=== PATIENT | male | born 1985 | race Caucasian/White ===

== ENCOUNTER 2021-04-27 17:57 | Inpatient (IN) | payer SELFPAY ==
[~2021-04-27] VITALS: Ht 182.9 cm; Wt 100.7 kg
[2021-04-27 19:22] LABS: HEMOGLOBIN 15.2 gm/dl (14.0-17.5); RED BLOOD COUNT 4.8 M/UL (4.20-5.50); WHITE BLOOD COUNT 15.7 K/UL (4.5-11.0)
[2021-04-27 19:59] LABS: BUN/CREATININE RATIO 15 (0-10)
[2021-04-28 06:41] LABS: HEMOGLOBIN 13.2 gm/dl (14.0-17.5); RED BLOOD COUNT 4.18 M/UL (4.20-5.50); WHITE BLOOD COUNT 10.5 K/UL (4.5-11.0)
[2021-04-28 12:43] LABS: BUN/CREATININE RATIO 10 (0-10)
[2021-04-28 13:02] LABS: HEMOGLOBIN 10.5 gm/dl (14.0-17.5); RED BLOOD COUNT 3.36 M/UL (4.20-5.50); WHITE BLOOD COUNT 19.5 K/UL (4.5-11.0)
[2021-04-29 06:36] LABS: HEMOGLOBIN 10.8 gm/dl (14.0-17.5); RED BLOOD COUNT 3.61 M/UL (4.20-5.50); WHITE BLOOD COUNT 16.1 K/UL (4.5-11.0)
[2021-04-29 06:57] LABS: BUN/CREATININE RATIO 11 (0-10)
[2021-04-30 08:44] LABS: BUN/CREATININE RATIO 13 (0-10)
[2021-04-30 09:19] LABS: HEMOGLOBIN 9.7 gm/dl (14.0-17.5)
[2021-04-30 09:20] LABS: RED BLOOD COUNT 3.23 M/UL (4.20-5.50)
[2021-05-01 04:44] LABS: HEMOGLOBIN 8.9 gm/dl (14.0-17.5); RED BLOOD COUNT 2.99 M/UL (4.20-5.50); WHITE BLOOD COUNT 9.6 K/UL (4.5-11.0)
[2021-05-01] MEDS ORDERED: ENOXAPARIN40 MG/0.4 SC (10:11)
[2021-05-01] MEDS ORDERED: ELIQUIS 2.5 MG2.5 MG PO (12:38)
--- NOTE | 2021-05-01 17:30 | NUR ---
PATIENT DECLINED GETTING MEDICAL EQUIPMENT AND SAID HE WOULD USE THE EQUIPMENT HIS FAMILY HAD, HE HAS A WALKER AND POTTY CHAIR FROM A FAMILY MEMBER.
== END 2021-05-01 17:00 | disposition home or self-care (01) | DRG 481 ==
LOC: ER1 17:57 → CDU 19:10 → M/S 19:10
PROVIDERS: Internal Medicine; Orthopaedic Surgery; Physician Assistant; ADMIT Internal Medicine
PROC: 30233N1 Transfusion of Nonautologous Red Blood Cells into Peripheral Vein, Percutaneous Approach (ICD-10-PCS; 2021-04-28)
PROC: 0QS704Z Reposition Left Upper Femur with Internal Fixation Device, Open Approach (ICD-10-PCS; principal; 2021-04-28 08:02)
DX: S72.22XA Displaced subtrochanteric fracture of left femur, initial encounter for closed fracture (principal); D62 Acute posthemorrhagic anemia; Z20.822 Contact with and (suspected) exposure to COVID-19; R00.0 Tachycardia, unspecified; W11.XXXA Fall on and from ladder, initial encounter; Y93.89 Activity, other specified; Y92.009 Unspecified place in unspecified non-institutional (private) residence as the place of occurrence of the external cause
CPT/HCPCS: 36415; 36430; 71045; 72170; 73502; 73552; 76000; 80048; 80053; 85018; 85025; 85027; 86850; 86900; 86901; 86920; 97110-GP-CQ; 97116-GP-CQ; 97162; 97166; 97530; 97530-GP-CQ; 97535; 99285; C1713; J0690; J1100; J1170; J1650; J1885; J2001; J2250; J2270; J2370; J2405; J2704; J2795; J3010; J3370; J7030; J7120; P9016; P9045; U0002